=== PATIENT | female | born 1960 | race Caucasian/White ===

== ENCOUNTER 2016-10-02 00:35 | Emergency (ER) | payer MEDICAID ==
--- NOTE | 2016-10-02 01:01 | EDPHY ---
H & P Source: Patient, Police, Old records Exam Limitations: No limitations - Medical/Surgical History Hx Asthma: No Hx Chronic Respiratory Disease: No Hx Diabetes: No Hx Cardiac Disease: No Hx Renal Disease: No Hx Cirrhosis: No Hx Alcoholism: No Hx HIV/AIDS: No Hx Splenectomy or Spleen Trauma: No Other PMH: PMH:ETOH,SZ,DEPRESSION - Social History Smoking Status: Never smoked Time Seen by Provider: 10/02/16 00:38 HPI/ROS: HPI The patient presents with suicidal ideation without plan. She presents brought in by the police on a mental health hold. The patient called a suicide hotline [facility] stating that she was feeling suicidal. The police then checked in on her and she confirms she was feeling suicidal, though cannot state a plan. She says she is very depressed because her mother in November of last year, she has lost her job, and over the last 4-7 days she has relapsed after 10 months of sobriety from alcohol. She has been drinking 1/2 to 1 pt of alcohol a day. She tells me "what's the use?' in living and that she "can't take any more pain ". REVIEW OF SYSTEMS Constitutional: No fever, no chills. Eyes: No discharge. ENT: No sore throat. Cardiovascular: No chest pain, no palpitations. Respiratory: No cough, no shortness of breath. Gastrointestinal: No abdominal pain, no vomiting. Genitourinary: No hematuria. Musculoskeletal: No back pain. Skin: No rashes. Neurological: No headache. PMHx: Depression Soc Hx: Chronic alcohol abuse, lives alone PHYSICAL General Appearance: Alert, tearful at times Eyes: Pupils equal and round no pallor or injection ENT, Mouth: Mucous membranes moist Respiratory: There are no retractions, lungs are clear to auscultation Cardiovascular: Regular rate and rhythm Gastrointestinal: Abdomen is soft and non-tender, no masses, bowel sounds normal Neurological: A&O, moves all extremities Skin: Warm and dry, no rashes Musculoskeletal: Neck is supple non tender Extremities: symmetrical, full range of motion Psychiatric: Patient is oriented X 3, there is no agitation ([place]) Constitutional: Initial Vital Signs Temperature (C) 37.1 C 10/02/16 00:35 Heart Rate 84 10/02/16 00:35 Respiratory Rate 16 10/02/16 00:35 Blood Pressure 123/72 H 10/02/16 00:35 O2 Sat (%) 96 10/02/16 00:35 O2 Delivery Mode Room Air Allergies/Adverse Reactions: clonazepam Allergy (Intermediate, Verified 11/09/15 09:28) Other-Enter Comments Home Medications: Medication Instructions Recorded Abilify Unk Dose 01/12/16 Adderall Unk Dose 01/12/16 Lamotrigine Unk Dose 01/12/16 Pantoprazole Sodium [Protonix] 40 mg PO DAILY #30 tab 01/12/16 Prozac Unk Dose 01/12/16 Trazadone Unk Dose 01/12/16 Medical Decision Making ED Course/Re-evaluation: 5:20 a.m.- The patient has remained stable throughout her time in the emergency room. Labs were checked and did reveal a markedly elevated alcohol level. Urine toxicology was positive for benzodiazepines and marijuana. She is metabolizing her alcohol currently and awaiting psychiatric evaluation. I anticipate she will be signed out to the oncoming provider Dr. Morgan at 7:00 a.m., pending her sobriety and psychiatric evaluation. ([place] Edward) 1500: Patient was signed out to me at change of shift by Dr. Morgan. Patient is awaiting to metabolize alcohol for further evaluation. Patient was evaluated. Her hold was lifted. She was given warnings prior to leaving. (Dinah Streeter) Differential Diagnosis: This is a 55-year-old female who presents on an M1 hold for suicidal ideation. She states she has recently relapsed and started drinking alcohol again because she is saddened by the loss of her mother and loss of employment. She does not have an exact plan for suicide. She has had similar presentations to this. She is currently intoxicated. Differential diagnosis includes alcohol intoxication, depression with suicidal ideation, polysubstance abuse. ([place] Edward) - Data Points Laboratory Results: Laboratory Results 10/02/16 00:49 10/02/16 00:49 Medications Given: Discontinued Medications Lorazepam (Ativan) 1 mg PO EDNOW ONE Stop: 10/02/16 12:55 Last Admin: 10/02/16 13:12 Dose: 1 mg Ondansetron HCl (Zofran Odt) 4 mg PO EDNOW ONE Stop: 10/02/16 10:50 Last Admin: 10/02/16 10:51 Dose: 4 mg Departure - Departure Disposition: Home, Routine, Self-Care Clinical Impression: Suicidal ideation, Alcoholism Condition: Good Instructions: Abuse of Alcohol (ED) Referrals: [facility],. [Clinic] - As per Instructions Nick Rollins MD [Medical Doctor] - As per Instructions
[2016-10-02 01:07] LABS: % IMMATURE GRANULYOCYTES 0.2 % (0.0-1.1); ABSOLUTE IMMATURE GRANULOCYTES 0.01 10^3/uL (0.00-0.10); ADD DIFF? NO; ADD MORPH? NO; ADD SCAN? NO; ATYPICAL LYMPHOCYTE FLAG 0 (0-99); FRAGMENT RBC FLAG 0 (0-99); HEMATOCRIT 41.2 % (38.0-47.0); HEMOGLOBIN 14.4 g/dL (12.6-16.3); LEFT SHIFT FLG 0 (0-99); LIPEMIA HEMOLYSIS FLAG 90 (0-99); MEAN CELL HEMOGLOBIN 35.2 pg (27.9-34.1); MEAN CELL VOLUME 100.7 fL (81.5-99.8); MEAN PLATELET VOLUME 8.8 fL (8.7-11.7); PLATELET CLUMPS FLAG 20 (0-99); PLATELET COUNT 197 10^3/uL (150-400); RED BLOOD CELL COUNT 4.09 10^6/uL (4.18-5.33); RED CELL DISTRIBUTION WIDTH 13.4 % (11.5-15.2)
[2016-10-02 01:18] LABS: ANION GAP 17 mEq/L (8-16); CALCIUM 9.2 mg/dL (8.5-10.4); CARBON DIOXIDE 19 mEq/l (22-31); CHLORIDE 113 mEq/L (97-110); CREATININE 0.8 mg/dL (0.6-1.0); GLOMERULAR FILTRATION RATE > 60; GLUCOSE 82 mg/dL (70-100); POTASSIUM 3.8 mEq/L (3.5-5.2); SODIUM 149 mEq/L (134-144)
[2016-10-02 01:26] LABS: ETHANOL SERUM 436 mg/dL (0-10)
[2016-10-02] MEDS ORDERED: ONDANSETRON DISINTEGRATING 4 MG TAB ONE (10:31)
[2016-10-02] MEDS ORDERED: ONDANSETRON DISINTEGRATING 4 MG TAB PO ONE (10:49)
[2016-10-02] MEDS ORDERED: LORazepam 1 MG TAB ONE (12:54)
[2016-10-02] MEDS ORDERED: LORazepam 1 MG TAB PO ONE (12:54)
[2016-10-02 16:41] VITALS: RESP 14
[2016-10-02 20:11] VITALS: BP 151/101; PULSE 78; TEMP 98.6; O2SAT 99
== END 2016-10-02 19:59 | disposition home or self-care (01) ==
DX: R45.851 Suicidal ideations (principal); F10.20 Alcohol dependence, uncomplicated
CPT/HCPCS: 80305; G0480

== ENCOUNTER 2017-10-26 13:35 | Emergency (ER) | payer MEDICAID ==
--- NOTE | 2017-10-26 14:45 | EDPHY ---
H & P Stated Complaint: NONTRAUMATIC LOW BACK PAIN/TREMORS/JUST DETOXED AT [facility] - Personal History Current Tetanus Diphtheria and Acellular Pertussis (TDAP): Unsure - Medical/Surgical History Hx Asthma: No Hx Chronic Respiratory Disease: No Hx Diabetes: No Hx Cardiac Disease: No Hx Renal Disease: No Hx Cirrhosis: No Hx Alcoholism: Yes Hx HIV/AIDS: No Hx Splenectomy or Spleen Trauma: No Other PMH: PMH:ETOH,SZ,DEPRESSION - Social History Smoking Status: Never smoked Time Seen by Provider: 10/26/17 14:43 HPI/ROS: CHIEF COMPLAINT: Low back pain x2 days HISTORY OF PRESENT ILLNESS: 57-year-old female complaining of acute on chronic low back pain for the past 3 days. Reproducible exacerbated with movement at the waist. Better sitting still. Feels similar to prior lumbar back pain. No radiculopathy. No trauma. No fall. No saddle anesthesia. No fever or chills. No incontinence no retention. She is also complaining of increasing anxiety related to the of her father recently. No suicidal or homicidal ideation. History of alcoholism, last drink was 5 days ago, denies hallucination, denies seizure. PRIMARY CARE PROVIDER: REVIEW OF SYSTEMS: A ten point review of systems was performed and is negative with the exception of the items mentioned in the HPI PAST MEDICAL & SURGICAL HISTORY: Alcoholism SOCIAL HISTORY: Alcoholism last drink of alcohol 5 days ago PHYSICAL EXAM (Prior to examination, patient consented to physical exam, hands were washed and my usual and customary physical exam procedures followed) 1) GENERAL: Well-developed, well-nourished, alert and oriented. Appears nontoxic. She is tearful, tremulous 2) HEAD: Normocephalic, atraumatic 3) HEENT: Pupils equal, round, reactive to light bilaterally. Sclera anicteric. Nasopharynx, oropharynx, clear, no lesions. 4) NECK: Full range of motion, no meningeal signs. 5) LUNGS: Clear auscultation bilaterally, no wheezes, no rhonchi, no retractions. 6) HEART: Regular rate and rhythm, no murmur, no heave, no gallop. 7) ABDOMEN: No guarding, no rebound, no focal tenderness, negative McBurney's, negative Martinez's, negative Rovsing's, negative peritoneal sign, 8) MUSCULOSKELETAL: Moving all extremities, no focal areas of tenderness, no obvious trauma. No peripheral edema or discoloration. 9) BACK: tender to palpation paraspinous muscle. No CVA tenderness, no midline vertebral tenderness, no fluctuance, no step-off, no obvious trauma, no visual or palpable abnormality. Patella, Achilles reflexes intact to bilateral strength 5/5 10) SKIN: No rash, no petechiae. 11) NEURO: Awake, alert, and oriented to person, place and time. Answers questions appropriately. There were no obvious focal neurologic abnormalities. No cerebellar dysfunction. Normal steady gait. Upper and lower extremities bilaterally with strength 5 / 5, reflexes 2+.. She is tremulous. DIFFERENTIAL DIAGNOSIS: In no particular order, including but not limited to, fracture, sprain/strain, cauda equina, spinal infectious etiology. MEDICAL DECISION MAKING Lower index of suspicion for cauda equina, epidural abscess, epidural hematoma, lumbar myositis, diskitis, as the patient is neurologically intact in the lower extremities, has patella and Achilles reflexes intact and equal bilaterally, has no neurologic deficits, no incontinence, no retention, no midline pain, no fluctuance, afebrile, no flulike symptoms. Pain may be secondary to muscular strain, may be secondary to discogenic etiology. At this point I do not identify definitive indication for emergent MRI, however patient may necessitate this on an outpatient basis. Patient given acute back pain precautions. Regarding the patient's increasing anxiety, she denies suicidal or homicidal ideation, notes recent of her father. I have agreed to give her 3 Ativan tablet prescription. Patient verbalizes understanding of discharge instructions. I believe her to be a competent decision-maker. All questions and concerns have been addressed by me. Ample opportunity for questions have been provided . The patient understands that this diagnosis is provisional and can never be 100% accurate. Usual and customary warnings were given concerning the clinical impression and all the patient's questions were answered. The patient was instructed to return to the emergency department should her symptoms worsen or return, or develop any new symptoms, otherwise to followup as directed in discharge instructions. (Shin,D Sherlyn) Constitutional: Initial Vital Signs Temperature (C) 36.5 C 10/26/17 13:39 Heart Rate 62 10/26/17 13:39 Respiratory Rate 18 10/26/17 13:39 Blood Pressure 126/89 H 10/26/17 13:39 O2 Sat (%) 99 10/26/17 13:39 O2 Delivery Mode Room Air Allergies/Adverse Reactions: clonazepam Allergy (Intermediate, Verified 10/26/17 13:38) Other-Enter Comments Home Medications: Medication Instructions Recorded Abilify Unk Dose 01/12/16 Adderall Unk Dose 01/12/16 Lamotrigine Unk Dose 01/12/16 Pantoprazole Sodium [Protonix] 40 mg PO DAILY #30 tab 01/12/16 Prozac Unk Dose 01/12/16 Trazadone Unk Dose 01/12/16 Cyclobenzaprine [Flexeril 10 MG 10 mg PO TID #10 tab 10/26/17 (RX)] LORazepam [Ativan 1 mg (RX)] 1 mg PO Q6 PRN #3 tab 10/26/17 Medical Decision Making Other Provider: The patient was evaluated and managed by the Physician Certified Ophthalmic Technician. My co- signature indicates that I have reviewed this chart and I agree with the findings and plan of care as documented. I am the secondary supervising physician. (Aaliyah Tavarez) - Data Points Medications Given: Discontinued Medications Cyclobenzaprine HCl (Flexeril) 10 mg PO EDNOW ONE Stop: 10/26/17 15:23 Last Admin: 10/26/17 15:28 Dose: 10 mg Departure - Departure Disposition: Home, Routine, Self-Care Clinical Impression: Anxiety Low back pain Qualifiers: Chronicity: acute Back pain laterality: bilateral Sciatica presence: without sciatica Qualified Code(s): M54.5 - Low back pain Condition: Good Instructions: Acute Low Back Pain (ED), Anxiety (ED) Additional Instructions: Seek medical attention if you develop new or worsening pain, if you develop bladder or bowel dysfunction, numbness around your perineum, foot drop, or any other symptoms that concern you. Referrals: [facility],. [Clinic] - 2-3 days, call for appt. Prescriptions: Cyclobenzaprine [Flexeril 10 MG (RX)] 10 mg PO TID #10 tab LORazepam [Ativan 1 mg (RX)] 1 mg PO Q6 PRN #3 tab PRN Reason: Anxiety
[2017-10-26] MEDS ORDERED: CYCLOBENZAPRINE 10 MG TAB PO ONE (15:22)
[2017-10-26 16:33] VITALS: BP 135/85
== END 2017-10-26 16:33 | disposition home or self-care (01) ==
DX: M54.5 Low back pain (principal); F41.9 Anxiety disorder, unspecified

== ENCOUNTER 2017-11-27 10:02 | Inpatient (IN) | payer MEDICAID, OTHER ==
[2017-11-27] MEDS ORDERED: LORazepam 2 MG/ML INJ ONE (10:35)
[2017-11-27] MEDS ORDERED: LORazepam 2 MG/ML INJ IVP ONE ×2 (10:37→11:03)
[2017-11-27] MEDS ORDERED: NS 1,000 ML IV ONE ×2 (11:02→11:39)
--- NOTE | 2017-11-27 11:02 | EDPHY ---
General - History Smoking Status: Never smoked Time Seen by Provider: 11/27/17 10:53 Narrative: CHIEF COMPLAINT: Anxiety, suicidal HISTORY OF PRESENT ILLNESS: Patient presents with complaints of feeling anxious, depressed and suicidal. She says that she is currently unemployed and has been increasingly anxious over the past few days. Over the past 24 hr she has felt depressed and suicidal. She says she does not have a plan but feels as though she would hurt herself. She is tearful. She describes spasms of the, tingling the mouth. No chest pain. No shortness of breath. No trauma or injury. She denies any ingestion of any illicit substances or any of her prescribed medications other than prescription doses. She does admit 1 pt per day of vodka a use last intake last night. REVIEW OF SYSTEMS: Ten systems reviewed and are negative unless otherwise noted in the HPI PCP: None currently SPECIALISTS: None currently PAST MEDICAL HISTORY: Anxiety, depression alcohol use, seizure disorder PAST SURGICAL HISTORY: No recent surgeries SOCIAL HISTORY: Nonsmoker. Daily ingestion of vodka 1 pt. Last intake last night. Denies street drug use. FAMILY HISTORY: Noncontributory EXAMINATION General Appearance: Alert, no distress. Tearful and anxious Head: normocephalic, atraumatic Eyes: Pupils equal and round, no conjunctival pallor or injection ENT, Mouth: Mucous membranes moist Neck: Normal inspection, supple, non-tender Respiratory: Lungs are clear to auscultation Cardiovascular: Regular rate and rhythm. No murmur per Gastrointestinal: Abdomen is soft and nontender Back: non-tender, no bony abnormalities Neurological: GCS 15. A&O, nonfocal, normal gait Skin: Warm and dry, no rash Extremities: Nontender, no pedal edema Psychiatric: Depressed mood and flat affect with suicidal ideation without a plan. Denies ingestion of illicit substances or attempt to harm herself today. DIFFERENTIAL DIAGNOSES: Including but not limited to alcohol intoxication, alcohol withdrawal, depression, suicidal, anxiety MDM: 11:00 a.m. Increasing anxiety and depression with thoughts of self-harm. She says that she feels for her life if he is discharged home although she does not admitted plan. She has had increasing suicidal thoughts today. She denies any ingestion of any illicit substances. She does admit to alcohol use last night. There is no evidence of delirium tremens or acute alcohol withdrawal or any seizure activity. I have placed her on a medical detained or due to the suicidal thoughts. Proceed with medical clearance. 11:40 a.m. Laboratory studies reveal a serum alcohol level of 156 with elevated anion gap of 25. Laboratory studies otherwise within normal limits. She received 1 mg of Ativan and is currently receiving 1 L IV fluid. I have ordered a 2nd L fluid I will discuss with Dr. Tavarez. She does not exhibit any signs or symptoms of delirium tremens or encephalopathy at this time. She is afebrile. 2:00 p.m. Patient has been evaluated twice in the past hour and remains awake alert no acute distress. Her 2nd L IV fluid is only recently completed, and a repeat chemistry is pending. She exhibits no signs of delirium tremens or encephalopathy. 2:20 p.m. Patient's chemistry reveals closed anion gap at this time. Mild hypocalcemia. This after 2 L IV fluid. I re-evaluated her and she is feeling much better at this time. She says she is no longer feeling suicidal but will still be evaluated by mental health professional shortly. She remains on a detainer at this time. 4:00 p.m. Evaluation pending. She is resting comfortably. Carpopedal spasms have completely resolved. She is eating without difficulties. 5:15 p.m. Patient is currently being evaluated. At this time Dr. Rogers will assume care the patient. Please see his note for final disposition. SUPERVISION: Patient was independently examined, but I discussed the case with my secondary supervising physician Dr. Tavarez and Dr. Rogers ([facility]) Medical Decision Makin:00 p.m. the patient has been evaluated and they will plan to admit. They are requesting Ativan for anxiety. 10:00 p.m. Patient accepted to [address] [place] [address] Restrepo. She is feeling much better after Librium (Tyrone Rogers) Discussion: The patient was evaluated and managed by the Physician Soap Drier Tender. I discussed the patient's presentation and course with the midlevel provider with them and agree with the evaluation. My co-signature indicates that I have reviewed this chart and I agree with the findings and plan of care as documented. I am the secondary supervising physician. (Aaliyah Tavarez) - Objective Vital Signs: Initial Vital Signs Temperature (C) 98.2 F 11/27/17 10:18 Heart Rate 103 H 11/27/17 10:18 Respiratory Rate 24 H 11/27/17 10:18 Blood Pressure 157/106 H 11/27/17 10:18 O2 Sat (%) 98 11/27/17 10:18 O2 Delivery Mode Room Air O2 (L/minute) 2 Allergies/Adverse Reactions: No Known Allergies Allergy (Verified 11/27/17 22:04) Home Medications: Medication Instructions Recorded Dextroamphetamine/Amphetamine 20 mg PO DAILY 01/12/16 [Adderall Xr 20 mg Capsule] FLUoxetine [Prozac 20 MG (*)] 80 mg PO DAILY 01/12/16 lamoTRIgine [LamICTAL 100 MG (*)] 150 mg PO DAILY 01/12/16 traZODone [traZODone 150MG (*)] 150 mg PO HS 01/12/16 Laboratory Results: Laboratory Results 11/27/17 10:33 11/27/17 13:50 Medications Given: Chlordiazepoxide HCl (Librium) 25 - 50 mg PO Q4HRS PRN; Protocol PRN Reason: CIWA Protocol Stop: 05/27/18 00:27 Last Admin: 11/28/17 00:58 Dose: 25 mg Folic Acid (Folic Acid) 1 mg PO DAILY JORJE Stop: 05/27/18 08:59 Last Admin: 11/28/17 08:19 Dose: 1 mg Gabapentin (Neurontin) 400 mg PO TID JORJE Stop: 05/27/18 15:59 Last Admin: 11/28/17 16:23 Dose: 400 mg Multivitamins (Tab-A-Mary Ann) 1 each PO DAILY JORJE Stop: 05/27/18 08:59 Last Admin: 11/28/17 08:19 Dose: 1 each Thiamine HCl (Vitamin B-1) 100 mg PO DAILY JORJE Stop: 11/30/17 09:01 Last Admin: 11/28/17 08:19 Dose: 100 mg Venlafaxine HCl (Effexor Xr) 75 mg PO DAILY JORJE Stop: 05/27/18 14:14 Last Admin: 11/28/17 14:35 Dose: 75 mg Discontinued Medications Chlordiazepoxide HCl (Librium) 50 mg PO EDNOW ONE Stop: 11/27/17 20:07 Last Admin: 11/27/17 20:10 Dose: 50 mg Sodium Chloride (Ns) 1,000 mls @ 0 mls/hr IV EDNOW ONE; Wide Open PRN Reason: Protocol Stop: 11/27/17 11:03 Last Admin: 11/27/17 11:25 Dose: 1,000 mls Sodium Chloride (Ns) 1,000 mls @ 0 mls/hr IV EDNOW ONE; Wide Open PRN Reason: Protocol Stop: 11/27/17 11:40 Last Admin: 11/27/17 11:44 Dose: 1,000 mls Lamotrigine (Lamictal) 100 mg PO ONCE ONE Stop: 11/28/17 00:46 Last Admin: 11/28/17 00:58 Dose: 100 mg Lorazepam (Ativan Injection) 1 mg IVP EDNOW ONE Stop: 11/27/17 10:38 Last Admin: 11/27/17 10:40 Dose: 1 mg Lorazepam (Ativan Injection) 1 mg IVP EDNOW ONE Stop: 11/27/17 11:04 Last Admin: 11/27/17 11:17 Dose: 1 mg Lorazepam (Ativan) 1 mg PO EDNOW ONE Stop: 11/27/17 19:12 Last Admin: 11/27/17 19:13 Dose: 1 mg Thiamine HCl (Vitamin B-1) 100 mg PO ONCE ONE Stop: 11/28/17 00:29 Last Admin: 11/28/17 05:30 Dose: Not Given Trazodone HCl (Trazodone) 50 mg PO ONCE ONE Stop: 11/28/17 00:46 Last Admin: 11/28/17 00:58 Dose: 50 mg Departure - Departure Disposition: Other Psych, Not [place] Clinical Impression: Alcoholism, Suicidal ideation Condition: Good
[2017-11-27 11:14] LABS: PLATELET COUNT 347 10^3/uL (150-400)
[2017-11-27] MEDS ORDERED: LORazepam 1 MG TAB PO ONE (19:11)
[2017-11-27] MEDS ORDERED: LORazepam 1 MG TAB ONE (19:12)
[2017-11-27] MEDS ORDERED: chlordiazePOXIDE 25 MG CAP PO ONE (20:06)
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
[2017-11-28] MEDS ORDERED: IBUPROFEN 200 MG TAB PO PRN (00:28)
[2017-11-28] MEDS ORDERED: THIAMINE HCL 100 MG TAB (ONCE) PO ONE (00:28)
[2017-11-28] MEDS ORDERED: PROMETHAZINE HCL 25 MG TAB PO PRN (00:28)
[2017-11-28] MEDS ORDERED: MAGNESIUM HYDROXIDE 30 ML UDCUP PO PRN (00:28)
[2017-11-28] MEDS ORDERED: chlordiazePOXIDE 25 MG CAP PO PRN (00:28)
[2017-11-28] MEDS ORDERED: PROMETHAZINE HCL 25 MG SUPPR PR PRN (00:28)
[2017-11-28] MEDS ORDERED: MAG HYDROX/AL HYDROX/SIMETH 30 ML UDCUP PO PRN (00:28)
[2017-11-28] MEDS ORDERED: lamoTRIgine 100 MG TAB PO ONE (00:45)
[2017-11-28] MEDS ORDERED: traZODone 50 MG TAB PO ONE (00:45)
[2017-11-28] MEDS: THIAMINE HCL 100 MG TAB (DAILY X 3) PO SCH (08:19)
[2017-11-28] MEDS: FOLIC ACID 1 MG TAB PO SCH (08:19)
[2017-11-28] MEDS: MULTIVITAMINS 1 EACH TAB PO SCH (08:19)
--- NOTE | 2017-11-28 12:41 | ASMTBHMTP ---
Master Treatment Plan Master Treatment Plan Answers: Depressed Mood with for: Suicidal Ideation Date: 11/28/2017 Diagnosis on Admission: Major Depressive Disorder Expected length of stay: 3-5 days Reason for admission: Notes: Per TLC Evaluation - Pt. is a 57 year old female who presented to [facility] by EMS complaining of worsening depression and suicidal ideation. Pt. denied a plan but reported having thoughts of wanting to hurt herself. Pt. reports that when she is sober she never has suicidal thoughts. Pt. does report that she feels depressed and stated, "I'm on the verge of tears when I talk. Everything feels like too much for me and I don't feel like it would overwhelm others. I;m sleeping too much but it's where I feel safe." Pt . reported she is currently in the AA program and has been sober for 22 days but relapse last night. Pt. also reported that she does not feel like any of her psychiatric medications are working. Patient's stated presenting problems: Notes: Pt. reported drinking the night prior to admission. Pt. stated she is having "trouble with my sobrity". Pt. stated she had a panic attack on Monday and brought herself into the hospital Patient's goals for treatment: Notes: "Think my meds are all messed up". Pt. 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 Identify supports outside of hospital: Notes: Mai (sponsor) Nancy, Eva, Terri, Jaymie, Pk, Denis and Bernabe (x2) Discharge criteria: Notes: Suicidal ideation will resolve and patient will have a plan to safely manage recurrent suicidal ideation. Initial disposition plan/considerations: Notes: Return to apartment and to her cat. Continue sobriety Master Treatment Plan Required Signatures Psychiatrist signature: Answers: Psychiatrist: RN on-shift signature: Answers: RN: Patient signature: Answers: Patient: Date Signed: 11/28/2017 12:40 PM Electronically Signed By:Arline Catherine
[2017-11-28] MEDS: VENLAFAXINE XR 75 MG CAP PO SCH (14:35)
--- NOTE | 2017-11-28 15:03 | ASMTCMCOM ---
CM Note CM Note Notes: Pt. and CC complete pt's MTP, signed and placed in file. Pt. reports "not doing good". Pt. shared about relapsing recently. Pt. shared she was working on the fourth step with her sponsor, and became triggered. Pt. stated "Don't know how to stay safe during the 4th step". Pt. denied SI, HI, AVH and paranoia. Pt. shared she is attending AA meetings and requested a Big Book while on the unit. Pt. stated her cat is at home and will need someone to care for it. CC and Pt. worked on plans for caring for the cat. 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 Pt. stated her plan was to give herself two months to work on her recovery and then start looking for a new job, but then pt. relapsed. Pt. stated she was hospitalized last in 1991 at [facility] for 2 weeks. Pt. stated she was diagnosed with depression, PTSD, anxiety, and has a history of trauma. Pt. rated her current depression a 8/10, which is higher than normal for her. Pt. rated her current anxiety 9-10/10. Pt. stated she doesn't want to kill herself, but doesn't necessarily want to continue existing. Date Signed: 11/28/2017 03:02 PM Electronically Signed By:Arline Catherine
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
[2017-11-28] MEDS: GABAPENTIN 400 MG CAP PO SCH ×2 (16:23→21:39)
--- NOTE | 2017-11-28 17:52 | BCON ---
[f rep st] BEHAVIORAL HEALTH CONSULTATION DATE OF CONSULTATION: 11/28/2017 REFERRING PHYSICIAN: Jassi Restrepo MD REASON FOR REFERRAL: Medical clearance for inpatient behavioral health stay. HISTORY OF PRESENT ILLNESS: This patient came to the emergency department complaining of feeling anxious, depressed and suicidal. She was evaluated by the mental health team and admitted for further psychiatric care. Incidentally , she was found to be intoxicated on alcohol. She is currently without acute medical complaints though she is tearful and anxious. PAST MEDICAL HISTORY: 1. Mental health issues with diagnoses in the chart of major depressive disorder. 2. Alcoholism. 3. Multiple falls with facial fractures and subdural hematoma. 4. Pneumonia. PAST SURGICAL HISTORY: She has not had any surgeries. MEDICATIONS: Prior to admission: 1. Adderall 20 mg p.o. daily. 2. Trazodone 150 mg p.o. at bedtime. 3. Lamotrigine 150 mg p.o. daily. 4. Fluoxetine 80 mg p.o. daily. Please note, I am unclear if the lamotrigine is for mental health or if she has a history of seizures related to the history of subdural hematoma. SOCIAL HISTORY: She lives alone. 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 She drinks large amounts of alcohol. She is a nonsmoker. She has no children. FAMILY HISTORY: Noncontributory. REVIEW OF SYSTEMS: She denies any symptoms of alcohol withdrawal and reports that she has never had withdrawal symptoms in the past. She specifically denies shakes or sweats. She has no cough or dyspnea. No fevers or chills. No nausea, vomiting, constipation, or diarrhea. No dysuria and no urinary frequency. Chart review reveals weight gain of almost 5 kg: on 06/23/2015, her weight was recorded at 54.4 kg, and her current weight is 61.2 kg. PHYSICAL EXAM: VITAL SIGNS: Blood pressure is 118/86, heart rate is 108, respiratory rate is 16, oxygen saturation is 98% on room air. Temperature is 36.8 degrees centigrade. GENERAL: This is a well-nourished, well-developed, overweight appearing woman sitting up in her bed, dressed in a green hospital smock and scrub pants. Cooperative and in moderate distress with tearfulness. HEENT: Extraocular movements are intact. Pupils are equal, round, reactive to light. Mucous membranes are moist. Dentition is in good condition. NECK: Supple. HEART: There is regular rate and rhythm with no murmurs, rubs, or gallops. LUNGS: Clear to auscultation bilaterally. ABDOMEN: Benign. EXTREMITIES: There is no cyanosis, clubbing, or edema. NEUROLOGIC: She is alert and oriented x3. Cranial nerves 2-12 are grossly intact. There is no focal weakness. Sensation is intact to light touch. LABORATORY STUDIES: Drawn yesterday in the emergency department. CBC revealed an elevated white blood cell count at 9.73. There were predominantly neutrophils and there was no left shift. Otherwise, there are minor abnormalities of no clinical significance. Serum chemistry initially showed an anion gap of 25. Subsequently, she was hydrated in the emergency department and anion gap resolved. She had a low carbon dioxide at 19 after hydration, calcium was 9.3 initially and 7.7 after hydration. Liver function tests revealed elevated AST and ALT of 166 and 107. Her albumin was low when checked after hydration at 3.3. TSH was normal at 1.79. Hemoglobin A1c was normal at 4.7. Toxicology screen in the serum was positive for 156 mg/dL of ethyl alcohol and in the urine was non-negative for amphetamines and marijuana. ASSESSMENT/RECOMMENDATIONS: 1. Mental health issues pending further evaluation and management per Psychiatry and the mental health team. 2. Hepatitis, likely due to ethanol ingestion. Liver functions can be re checked routinely by her primary care physician after her discharge. 3. Alcohol use disorder. She might benefit from specific substance abuse counseling. 4. Weight gain. Consider caution regarding medications that could further weight gain though at present based on her lab studies, she has no significant metabolic abnormalities. 5. Question of hypocalcemia. Even after corrected for low albumin her calcium is on the low side. Emergency department notes describe carpopedal spasm, it is conceivable that she was hyperventilating, which can change blood acid base balance, interfere with calcium metabolism in the cells and cause a carpopedal spasm. She should be observed for normal oral intake and for hyperventilation. If she has any further symptoms such as carpopedal spasm, further evaluation regarding calcium metabolism would be in order. I see no medical contraindications to this patient's continued stay in the inpatient behavioral health unit or to any psychiatric medications or procedures. Thank you very much for including me in the care of this patient and please do not hesitate to contact me or the hospitalist service should there be need for further medical evaluation. /[id number]/MODL MTDD
[2017-11-28] MEDS: lamoTRIgine 100 MG TAB PO SCH (21:39)
[2017-11-29] MEDS: THIAMINE HCL 100 MG TAB (DAILY X 3) PO SCH (08:50)
[2017-11-29] MEDS: MULTIVITAMINS 1 EACH TAB PO SCH (08:50)
[2017-11-29] MEDS: FOLIC ACID 1 MG TAB PO SCH (08:50)
[2017-11-29] MEDS: VENLAFAXINE XR 75 MG CAP PO SCH (08:51)
[2017-11-29] MEDS: GABAPENTIN 400 MG CAP PO SCH ×3 (08:51→21:02)
[2017-11-29] MEDS: DISULFIRAM 250 MG TAB PO SCH (09:35)
--- NOTE | 2017-11-29 09:36 | PDMN ---
Medical Necessity Medical necessity: [facility] [place] B008IP Major Depressive D/O, Adult IP Care, B013IP PTSD Adult IP Care and B903IP Substance-Related Disorders, Inpatient Behavioral Health Level of Care, Adult: 57 y/o w/ Major depressive d/o, severe, with anxious distress, PTSD, ETOH use d/o, severe in a controlled environment. Danger to self, M1 hold.
--- NOTE | 2017-11-29 11:06 | SOAPPROG ---
SOAP Progress Note Assessment/Plan: Assessment: Depression with anxious distress, PTSD, and alcohol use disorder, severe. Slight improvement noted. (see subjective/objective note). Patient is not safe to discharge at this time as patient continues to exhibit signs of depression, and express depression symptoms. Patient requires continued inpatient care because of current depression and recent SI, and requires inpatient level of care to stabilize in order to no longer be a danger to herself. Patient could benefit from continued inpatient hospitalization for crisis stabilization, safety, and medication evaluation. Plan: (1) Psychotropic medications: After reviewing options, risks, and benefits patient agrees to continue current medications. D/C Librium and CIWA protocol. No medication changes at this time as more time is needed to determine ongoing tolerability and efficacy. Plan is to continue to observe patient for response and side effects from medications, and ongoing monitoring and evaluation. (2) Review with patient informed consent and recommendations for psychotropic medication treatment listed below (3) Labs: no additional labs at this time (4) Therapy: continue milieu and group therapy (5) Further investigation including gathering information from patients relatives and review of past case records to inform treatment plan. (6) Safety/Wellness plan and follow-up outpatient appointments to be established prior to discharge. Next steps are for patient to meet with rn complex care to plan a safe discharge plan and establish outpatient services for ongoing treatment. (7) Confer with inpatient treatment team regarding treatment plan. (8) Legal status: M1; patient has agreed to voluntary when M1 expires (9) Consider discharge on Monday if patient is in stable condition, safe, and has a safe discharge plan. (10) Substance abuse interventions: recommend and refer patient to substance abuse treatment; reinforce substance abuse education and brief intervention above PSYCHOTROPIC MEDICATION TREATMENT INFORMED CONSENT and RECOMMENDATIONS: Review nature of condition, diagnosis, and prognosis. Review nature and purpose of psychotropic medication treatment. Review type of psychotropic medications being ordered. Review risk and benefits of psychotropic medication treatment. Review probable length of time patient will need to take medications. Review risk and benefits of not undergoing psychotropic medication treatment. Review alternative treatments to psychotropic medications. Review psychotropic medications contraindications, drug-drug interactions, side effects, and importance of reporting any side effects to a psychiatric provider or nurse during inpatient hospitalization, and upon discharge to patients psychiatric outpatient provider, primary care provider, or other health child care education coordinator. Review importance of asking a nurse, psychiatric provider, or primary care provider any questions or problems concerning the psychotropic medications. Verify patient understands the information that has been provided, and understands, accepts, and agrees to psychotropic medications. Review patients safety plan and importance of patient to report to staff while hospitalized if patient is ever a danger to self/others, or unable to care for self, and upon discharge, the importance for patient to contact [facility] or [facility], or go to the nearest emergency room, if patient is ever a danger to self/others, or unable to care for self. Recommend that upon discharge patient establish medication management treatment with a psychiatric provider, establishes routine therapy appointments, and follow-up with primary care provider. Verify patient understands and agrees to these recommendations. 11/29/17 11:06 Subjective: Following up with patient for evaluation of depression, anxiety, and safety. Patient reports, "Feeling calmer today. I have friends that went to my apartment to clean out all the booze that is left over there so I have a nice clean place to return to." Patient expresses the following psychiatric symptoms "a little anxious due to a few unknowns, being in an unfamiliar environment." Patient reports taking medications as prescribed, and describes response to medications as good. Patient does not report undesirable side effects from the medications. Patient reports appetite as improved, and reports eating all meals. Patient describes getting 9 hours of sleep. Patient expresses no symptoms of alcohol withdrawal. Patient has exhibited no signs of alcohol withdrawal. Patient denies SI. Reports last SI on Monday and Monday and states, "They were pretty intense then." Patient reports, "Still feeling pretty fragile, and not safe to discharge yet, would like to stay here to continue to be monitored. Would like to start on Antabuse before I leave here. " Objective: Vital Signs Temp Pulse Resp BP Pulse Ox 36.8 C 76 16 125/81 H 96 11/29/17 08:00 11/29/17 08:00 11/29/17 08:00 11/29/17 08:00 11/29/17 08:00 NURSING REPORT: Consulted with nursing for update on patients progress in treatment. Nurses report patient is engaged in treatment, is attending groups, slept 8 hours, expresses the following psychiatric symptoms: depression and anxiety, exhibits the following psychiatric symptoms: depressed, flat, anxious, tearful; is eating all meals, is taking medications as prescribed with no report of side effects, with no s/s of EPS/akathisia, and denies SI/HI, denies A /V hallucinations, denies delusions. SUBSTANCE ABUSE BRIEF INTERVENTION: Brief intervention regarding the risks of alcohol and cannabis abuse is provided to patient with goal to reduce the risk of harm that could result from the continued use of alcohol and cannabis, with the general aim to investigate the problem, raise awareness of problem, develop a solution with the patient, recommend a specific change or activity, and motivate the patient toward change. Assess substance abuse behavior and give supportive advice about harm reduction, recommend a reduction in hazardous/at- risk consumption patterns, and facilitate referrals for additional specialized treatment with healthcare customer service. Intermediate goal is for the patient to quit use of alcohol and decrease frequency of cannabis use and attend an AA meeting. Intervention focus on intermediate goals to allow for more immediate success in the treatment process to keep the patient motivated. Review following with patient: Cannabis use risks: Short-term use: impaired short-term memory, impaired motor coordination, altered judgement, in high doses paranoia and psychosis. Long-term use addiction, diminished life satisfaction and achievement, symptoms of chronic bronchitis, and increased risk of chronic psychosis disorders if predisposition to such disorders. In withdrawal anger, aggression irritability, anxiety and nervousness, decreased appetite or weight loss, restlessness, and sleep difficulties with strange dreams. Alcohol/Binge Drinking risks: short-term: injuries, violence, alcohol poisoning, risky sexual behaviors. Long-term: high blood pressure, stroke, liver disease, digestive problems, cancer, learning and memory problems, depression and anxiety, social problems, and alcohol dependence. TREATMENT TEAM MEETING: patient met with this KENO CLERK and treatment team including charge nurse, psychiatrist, ed case manager, and therapist to discuss patients treatment plan. Patient became severely anxious during treatment team meeting and stated she felt overwhelmed with making any decisions, and stated she felt safe here; however, stated she does not feel safe to discharge at this time. MSE: The patient presents casually dressed and with good hygiene, and looks stated age. Patient is sitting, posture is upright, and position is relaxed. Patient appears awake, alert, and responds appropriately and reasonably during interview. Patient is engaged, relates well to interviewer, and emotional facial expression is appropriate to situation and changes appropriately with topic. Patient is cooperative, makes comfortable eye contact, and movements are voluntary, deliberate, coordinated, and smooth and even with no inappropriate movements. Patient makes laryngeal sounds effortlessly and shares conversation appropriately; pace of conversation is appropriate, and stream of talking is fluent; articulation is clear and understandable; word choice is effortless and appropriate for education level; completes sentences, occasionally pausing to think; rate and volume are appropriate for interview and setting. Patient reports mood as anxious. Patients affect is stable with full variable range, congruent with mood, and appropriate to speech and circumstances. Patient has linear and logical thinking, with no loose associations, tangential thought, thought blocking, concrete thinking, or any other signs of formal thought disorder. Patient denies suicidal and homicidal ideation, and denies hallucinations and delusions. Patient appears to be a reliable historian with sound judgement and good insight into current condition. Patient has no apparent dysfunction in recent or remote memory noted , and no evidence of gross cognitive dysfunction noted at any point during the interview. - Time Spent With Patient Time Spent With Patient: 30 minutes, met with patient individually and with treatment team. - Pending Discharge Pending Discharge Within 24 Hours: No Pending Discharge Within 48 Hours: Yes Pending Discharge Date: 12/01/17 Pending Discharge Time: 11:00 ICD10 Worksheet Patient Problems: Problems Problem Status Onset Alcohol use disorder, severe, in controlled environment Acute Alcoholism Acute Major depressive disorder, recurrent episode, severe with anxious distress Acute Post traumatic stress disorder Acute Suicidal ideation Acute Alcohol abuse Acute Alcohol intoxication Acute Fall down stairs Acute Fracture of orbital floor Acute Intraparenchymal hematoma of brain due to trauma Acute Nasal bone fracture Acute Severe major depression Acute Sore throat Acute Subdural hemorrhage following injury Acute
--- NOTE | 2017-11-29 11:29 | ASMTBHDC ---
Notes Note: Notes: CC called [facility] to set up f/u appointments. Ct. is getting a new therapist and a new prescriber since her previous providers are leaving the agency. CC was able to schedule an appointment with therapist Alyce Chin on 12/06/17 at 11:00. Left for Alyce recommending that ct. get EOP services and work with a assistant child care teacher in addition to her current service. [facility] will call back with a prescriber appointment. Date Signed: 11/29/2017 11:28 AM Electronically Signed By:Kayleigh Oh
--- NOTE | 2017-11-29 11:57 | ASMTCMCOM ---
CM Note CM Note Notes: CC met with ct. for a check in. Ct. reported that she feels overwhelmed and anxious. She reported that she is anxious thinking about having to go back to her apartment and be there by herself. She said that she now realizes how bad her situation was prior to her admission. She discussed staying with friends for a few nights following her discharge and CC encouraged her to call her friends and try to figure out who she can stay with. Ct. said that she will make the calls. Date Signed: 11/29/2017 11:56 AM Electronically Signed By:Kayleigh Oh
[2017-11-29] MEDS: lamoTRIgine 100 MG TAB PO SCH (21:02)
[2017-11-30] MEDS: DISULFIRAM 250 MG TAB PO SCH (09:35)
[2017-11-30] MEDS: MULTIVITAMINS 1 EACH TAB PO SCH (09:35)
[2017-11-30] MEDS: THIAMINE HCL 100 MG TAB (DAILY X 3) PO SCH (09:35)
[2017-11-30] MEDS: VENLAFAXINE XR 75 MG CAP PO SCH (09:35)
[2017-11-30] MEDS: FOLIC ACID 1 MG TAB PO SCH (09:35)
[2017-11-30] MEDS: GABAPENTIN 400 MG CAP PO SCH ×3 (09:35→20:58)
--- NOTE | 2017-11-30 12:12 | ASMTBHDC ---
Notes Note: Notes: Therapy- 12/06/17 at 11:00 with [facility] [address], [facility] Med Provider Appt: MondayDecember 06 (12/06/17) at 1pm with Sin Yadav ([address]); Telehealth. Date Signed: 11/30/2017 12:10 PM Electronically Signed By:Arline Catherine
--- NOTE | 2017-11-30 13:26 | ASMTBHDC ---
Notes Note: Notes: Pt. reports "I'm doing good". Pt. stated she "slept really good". Pt. reports eating well, and "food is really good here". Pt. reports no issues with her current medications. Pt. shared about discharging Monday or Monday. Pt. requested to stay until Monday, as she wants another day to be "away from stress" and be "able to breath". Pt. stated she is taking a break from her [facility] right now, but will return to it later wiht her sponsor. Pt. stated she was "very anxious about going home" yesterday, but after speaking with some staff she feels better. Pt. stated she is "wanting to trust myself". Pt. shared she becomes upset easily, especially when she loses something. Pt. shared she has feelings of "rage even when sober". Pt. reports being "really excited about my meds". Pt. shared some friends are checking on her cat and cleaning her apartment for her. Pt. stated she is "afrind of feeling better", adding she is currently working on this issue. Pt. denied SI, HI, AVH and paranoia. Pt. presents as alert, calmer, not tearful, with a mostly pleasant demeanor, good eye contact and some insight into her recovery and mental health. Staff report pt. sleeping 8.5 hours. Date Signed: 11/30/2017 01:23 PM Electronically Signed By:Arline Catherine
--- NOTE | 2017-11-30 15:07 | SOAPPROG ---
SOAP Progress Note Assessment/Plan: Assessment: Depression with anxious distress, PTSD, and alcohol use disorder, severe. Slight improvement noted. (see subjective/objective note). Patient is not safe to discharge at this time as patient continues to exhibit signs of depression and anxiety, and express depression and anxiety symptoms. Patient requires continued inpatient care because of current depression, anxiety, and recent SI, and requires inpatient level of care to stabilize in order to no longer be a danger to herself. Patient could benefit from continued inpatient hospitalization for crisis stabilization, observation of safety, and medication evaluation. Plan: (1) Psychotropic medications: After reviewing options, risks, and benefits patient agrees to continue current medications, and hold Antabuse due to elevated AST/ALT with repeat liver function test tomorrow at which time will revisit with patient, and to continue Acamprosate for alcohol use disorder. Increase Gabapentin to 800 mg TID for anxiety. No other medication changes at this time as more time is needed to determine ongoing tolerability and efficacy. Plan is to continue to observe patient for response and side effects from medications, and ongoing monitoring and evaluation. (2) Review with patient informed consent and recommendations for psychotropic medication treatment listed below (3) Labs: repeat AST/ALT (4) Therapy: continue milieu and group therapy (5) Further investigation including gathering information from patients relatives and review of past case records to inform treatment plan. (6) Safety/Wellness plan and follow-up outpatient appointments to be established prior to discharge. Next steps are for patient to meet with care worker to plan a safe discharge plan and establish outpatient services for ongoing treatment. (7) Confer with inpatient treatment team regarding treatment plan. (8) Legal status: M1; patient has agreed to voluntary when M1 expires (9) Consider discharge on Monday if patient is in stable condition, safe, and has a safe discharge plan. (10) Substance abuse interventions: recommend and refer patient to substance abuse treatment; reinforce substance abuse education and brief intervention above PSYCHOTROPIC MEDICATION TREATMENT INFORMED CONSENT and RECOMMENDATIONS: Review nature of condition, diagnosis, and prognosis. Review nature and purpose of psychotropic medication treatment. Review type of psychotropic medications being ordered. Review risk and benefits of psychotropic medication treatment. Review probable length of time patient will need to take medications. Review risk and benefits of not undergoing psychotropic medication treatment. Review alternative treatments to psychotropic medications. Review psychotropic medications contraindications, drug-drug interactions, side effects, and importance of reporting any side effects to a psychiatric provider or nurse during inpatient hospitalization, and upon discharge to patients psychiatric outpatient provider, primary care provider, or other health senior care provider. Review importance of asking a nurse, psychiatric provider, or primary care provider any questions or problems concerning the psychotropic medications. Verify patient understands the information that has been provided, and understands, accepts, and agrees to psychotropic medications. Review patients safety plan and importance of patient to report to staff while hospitalized if patient is ever a danger to self/others, or unable to care for self, and upon discharge, the importance for patient to contact [facility] or [facility], or go to the nearest emergency room, if patient is ever a danger to self/others, or unable to care for self. Recommend that upon discharge patient establish medication management treatment with a psychiatric provider, establishes routine therapy appointments, and follow-up with primary care provider. Verify patient understands and agrees to these recommendations. 11/30/17 15:05 Subjective: Following up with patient for evaluation of depression, anxiety, and safety. Patient reports, "Feeling more stable and clear headed, still feeling really anxious about discharging." Patient reports taking medications as prescribed, and describes response to medications as okay, and expresses still feeling anxious. Patient does not report undesirable side effects from the medications. Patient agrees to continue current medications, and requests increase in Gabapentin to target continued anxiety. Patient reports appetite as improved, and reports eating all meals. Patient describes getting 9 hours of sleep. Patient expresses no symptoms of alcohol withdrawal. Patient has exhibited no signs of alcohol withdrawal. Patient denies SI, however, does not feel safe to be at home states she still feels fragile, and requests to stay another day to see if medication changes will improve her anxiety. Patient agrees to hold Antabuse until repeat liver function tests tomorrow due to concern of increased risks of hepatotoxicity due to current elevated AST/ALT. Patient agrees to start Acamprosate for alcohol use disorder, and agrees to continue voluntary hospitalization for continued stabilization and medication evaluation. Objective: Vital Signs Temp Pulse Resp BP Pulse Ox 36.9 C 79 16 122/82 H 99 11/30/17 08:00 11/30/17 08:00 11/30/17 08:00 11/30/17 08:00 11/30/17 08:00 NURSING REPORT: Consulted with nursing for update on patients progress in treatment. Nurses report patient is engaged in treatment, is attending groups, slept 8.5 hours, expresses the following psychiatric symptoms: depression and anxiety, exhibits the following psychiatric symptoms: depressed, flat, anxious; is eating all meals, is taking medications as prescribed with no report of side effects, with no s/s of EPS/akathisia, and denies SI/HI, denies A/V hallucinations, denies delusions. SUBSTANCE ABUSE BRIEF INTERVENTION: Brief intervention regarding the risks of alcohol and cannabis abuse is provided to patient with goal to reduce the risk of harm that could result from the continued use of alcohol and cannabis, with the general aim to investigate the problem, raise awareness of problem, develop a solution with the patient, recommend a specific change or activity, and motivate the patient toward change. Assess substance abuse behavior and give supportive advice about harm reduction, recommend a reduction in hazardous/at- risk consumption patterns, and facilitate referrals for additional specialized treatment with health care assistant. Intermediate goal is for the patient to quit use of alcohol and decrease frequency of cannabis use and attend an AA meeting. Intervention focus on intermediate goals to allow for more immediate success in the treatment process to keep the patient motivated. Review following with patient: Cannabis use risks: Short-term use: impaired short-term memory, impaired motor coordination, altered judgement, in high doses paranoia and psychosis. Long-term use addiction, diminished life satisfaction and achievement, symptoms of chronic bronchitis, and increased risk of chronic psychosis disorders if predisposition to such disorders. In withdrawal anger, aggression irritability, anxiety and nervousness, decreased appetite or weight loss, restlessness, and sleep difficulties with strange dreams. Alcohol/Binge Drinking risks: short-term: injuries, violence, alcohol poisoning, risky sexual behaviors. Long-term: high blood pressure, stroke, liver disease, digestive problems, cancer, learning and memory problems, depression and anxiety, social problems, and alcohol dependence. MSE: The patient presents casually dressed and with good hygiene, and looks stated age. Patient is sitting, posture is upright, and position is relaxed. Patient appears awake, alert, and responds appropriately and reasonably during interview. Patient is engaged, relates well to interviewer, and emotional facial expression is appropriate to situation and changes appropriately with topic. Intermittent tearfulness. Patient is cooperative, makes comfortable eye contact, and movements are voluntary, deliberate, coordinated, and smooth and even with no inappropriate movements. Patient makes laryngeal sounds effortlessly and shares conversation appropriately; pace of conversation is appropriate, and stream of talking is fluent; articulation is clear and understandable; word choice is effortless and appropriate for education level; completes sentences, occasionally pausing to think; rate and volume are appropriate for interview and setting. Patient reports mood as anxious. Patients affect is stable with full variable range, congruent with mood, and appropriate to speech and circumstances. Patient has linear and logical thinking, with no loose associations, tangential thought, thought blocking, concrete thinking, or any other signs of formal thought disorder. Patient denies suicidal and homicidal ideation, and denies hallucinations and delusions. Patient appears to be a reliable historian with sound judgement and good insight into current condition. Patient has no apparent dysfunction in recent or remote memory noted, and no evidence of gross cognitive dysfunction noted at any point during the interview. - Time Spent With Patient Time Spent With Patient: 25 minutes, met with patient individually. - Pending Discharge Pending Discharge Within 24 Hours: No Pending Discharge Within 48 Hours: Yes Pending Discharge Date: 12/02/17 Pending Discharge Time: 11:00 ICD10 Worksheet Patient Problems: Problems Problem Status Onset Alcohol use disorder, severe, in controlled environment Acute Alcoholism Acute Major depressive disorder, recurrent episode, severe with anxious distress Acute Post traumatic stress disorder Acute Suicidal ideation Acute Alcohol abuse Acute Alcohol intoxication Acute Fall down stairs Acute Fracture of orbital floor Acute Intraparenchymal hematoma of brain due to trauma Acute Nasal bone fracture Acute Severe major depression Acute Sore throat Acute Subdural hemorrhage following injury Acute
[2017-11-30] MEDS: ACAMPROSATE CALCIUM 333 MG TAB PO SCH (17:59)
[2017-11-30] MEDS: lamoTRIgine 100 MG TAB PO SCH (20:58)
[2017-12-01] MEDS: VENLAFAXINE XR 75 MG CAP PO SCH (08:42)
[2017-12-01] MEDS: MULTIVITAMINS 1 EACH TAB PO SCH (08:42)
[2017-12-01] MEDS: ACAMPROSATE CALCIUM 333 MG TAB PO SCH ×3 (08:42→18:31)
[2017-12-01] MEDS: FOLIC ACID 1 MG TAB PO SCH (08:42)
[2017-12-01] MEDS: GABAPENTIN 400 MG CAP PO SCH ×3 (08:43→21:00)
--- NOTE | 2017-12-01 10:23 | ASMTCMCOM ---
CM Note CM Note Notes: CC checking in with ct. She appears to be doing better. Mood is more stable and she is less anxious. Ct. is discharging tomorrow. She requested to leave the unit around 10:00am so that she can attend an AA meeting at 10:30. A friend is going to be with her throughout Sat. She will be staying with other friends over the long weekend. She has follow up appointments at [facility] on 12/06/17. Date Signed: 12/01/2017 10:22 AM Electronically Signed By:Kayleigh Oh
[2017-12-01] MEDS ORDERED: VENLAFAXINE XR 75 MG CAP PO ONE (10:26)
[2017-12-01] MEDS: DISULFIRAM 250 MG TAB PO SCH (11:33)
--- NOTE | 2017-12-01 13:38 | ASMTCMCOM ---
CM Note CM Note Notes: CC checked in with the patient; she reported having learned something in the stress management workshop that "totally shifted" her outlook. She stated that she planned "to take much of what I've learned home with me." The patient was cheerful and enthused about her experience on the unit. She reported "feeling much better" and plans to return to OP support that she hadn't been accessing prior to admission including, friends who have gotten together to help the patient. The patient was very grateful to [facility]. She is anticipating her discharge for tomorrow (12/02); requesting to leave early in the morning around 10:00 so that she can attend a 10:30 group. Date Signed: 12/01/2017 01:38 PM Electronically Signed By:Cecilia Hernandes
--- NOTE | 2017-12-01 13:59 | SOAPPROG ---
SOAP Progress Note Assessment/Plan: Assessment: Depression with anxious distress, PTSD, and alcohol use disorder, severe. Improvement noted. (see subjective/objective note). Patient to discharge tomorrow (Monday). Plan: (1) Psychotropic medications: After reviewing options, risks, and benefits patient agrees to continue current medications. After reviewing repeat liver function tests with patient, patient requests to restart Antabuse and increase Effexor XR to 150 mg po QD as AST/ALT levels have decreased since yesterday. No other medication changes at this time as more time is needed to determine ongoing tolerability and efficacy. Plan is to continue to observe patient for response and side effects from medications, and ongoing monitoring and evaluation. (2) Review with patient informed consent and recommendations for psychotropic medication treatment listed below (3) Labs: Repeat liver function test for tomorrow AM and review with patient (4) Therapy: continue milieu and group therapy (5) Further investigation including gathering information from patients relatives and review of past case records to inform treatment plan. (6) Safety/Wellness plan and follow-up outpatient appointments to be established prior to discharge. Next steps are for patient to meet with career development consultant to plan a safe discharge plan and establish outpatient services for ongoing treatment. (7) Confer with inpatient treatment team regarding treatment plan. (8) Legal status: voluntary (9) Consider discharge on Monday if patient is in stable condition, safe, and has a safe discharge plan. (10) Substance abuse interventions: recommend and refer patient to substance abuse treatment; reinforce substance abuse education and brief intervention above PSYCHOTROPIC MEDICATION TREATMENT INFORMED CONSENT and RECOMMENDATIONS: Review nature of condition, diagnosis, and prognosis. Review nature and purpose of psychotropic medication treatment. Review type of psychotropic medications being ordered. Review risk and benefits of psychotropic medication treatment. Review probable length of time patient will need to take medications. Review risk and benefits of not undergoing psychotropic medication treatment. Review alternative treatments to psychotropic medications. Review psychotropic medications contraindications, drug-drug interactions, side effects, and importance of reporting any side effects to a psychiatric provider or nurse during inpatient hospitalization, and upon discharge to patients psychiatric outpatient provider, primary care provider, or other health director of home care hospice. Review importance of asking a nurse, psychiatric provider, or primary care provider any questions or problems concerning the psychotropic medications. Verify patient understands the information that has been provided, and understands, accepts, and agrees to psychotropic medications. Review patients safety plan and importance of patient to report to staff while hospitalized if patient is ever a danger to self/others, or unable to care for self, and upon discharge, the importance for patient to contact [facility] or [facility], or go to the nearest emergency room, if patient is ever a danger to self/others, or unable to care for self. Recommend that upon discharge patient establish medication management treatment with a psychiatric provider, establishes routine therapy appointments, and follow-up with primary care provider. Verify patient understands and agrees to these recommendations. 12/01/17 14:00 Subjective: Following up with patient for evaluation of depression, anxiety, and safety. Patient reports, "Feeling much better, feeling back to my normal self." Patient reports taking medications as prescribed, and describes response to medications as okay, and expresses still feeling "a little anxious." Patient does not report undesirable side effects from the medications. Patient agrees to continue current medications, and requests to restart Antabuse and increase in Effexor XR to 150 mg po QD. Patient reports appetite as improved, and reports eating all meals. Patient describes getting 9 hours of sleep. Patient expresses no symptoms of alcohol withdrawal. Patient has exhibited no signs of alcohol withdrawal. Patient requests to discharge tomorrow (Monday). Objective: Vital Signs Temp Pulse Resp BP Pulse Ox 36.5 C 73 14 117/73 98 12/01/17 00:30 12/01/17 00:30 12/01/17 00:30 12/01/17 00:30 12/01/17 00:30 NURSING REPORT: Consulted with nursing for update on patients progress in treatment. Nurses report patient is engaged in treatment, is attending groups, slept 8.5 hours, expresses the following psychiatric symptoms: depression and anxiety, exhibits the following psychiatric symptoms: depressed, flat, anxious; is eating all meals, is taking medications as prescribed with no report of side effects, with no s/s of EPS/akathisia, and denies SI/HI, denies A/V hallucinations, denies delusions. SUBSTANCE ABUSE BRIEF INTERVENTION: Brief intervention regarding the risks of alcohol and cannabis abuse is provided to patient with goal to reduce the risk of harm that could result from the continued use of alcohol and cannabis, with the general aim to investigate the problem, raise awareness of problem, develop a solution with the patient, recommend a specific change or activity, and motivate the patient toward change. Assess substance abuse behavior and give supportive advice about harm reduction, recommend a reduction in hazardous/at- risk consumption patterns, and facilitate referrals for additional specialized treatment with care transition manager. Intermediate goal is for the patient to quit use of alcohol and decrease frequency of cannabis use and attend an AA meeting. Intervention focus on intermediate goals to allow for more immediate success in the treatment process to keep the patient motivated. Review following with patient: Cannabis use risks: Short-term use: impaired short-term memory, impaired motor coordination, altered judgement, in high doses paranoia and psychosis. Long-term use addiction, diminished life satisfaction and achievement, symptoms of chronic bronchitis, and increased risk of chronic psychosis disorders if predisposition to such disorders. In withdrawal anger, aggression irritability, anxiety and nervousness, decreased appetite or weight loss, restlessness, and sleep difficulties with strange dreams. Alcohol/Binge Drinking risks: short-term: injuries, violence, alcohol poisoning, risky sexual behaviors. Long-term: high blood pressure, stroke, liver disease, digestive problems, cancer, learning and memory problems, depression and anxiety, social problems, and alcohol dependence. TREATMENT TEAM MEETING: patient met with this [employer] and treatment team to discuss treatment plan and discharge plan for tomorrow. MSE: The patient presents casually dressed and with good hygiene, and looks stated age. Patient is sitting, posture is upright, and position is relaxed. Patient appears awake, alert, and responds appropriately and reasonably during interview. Patient is engaged, relates well to interviewer, and emotional facial expression is appropriate to situation and changes appropriately with topic. Patient is cooperative, makes comfortable eye contact, and movements are voluntary, deliberate, coordinated, and smooth and even with no inappropriate movements. Patient makes laryngeal sounds effortlessly and shares conversation appropriately; pace of conversation is appropriate, and stream of talking is fluent; articulation is clear and understandable; word choice is effortless and appropriate for education level; completes sentences, occasionally pausing to think; rate and volume are appropriate for interview and setting. Patient reports mood as anxious. Patients affect is stable with full variable range, congruent with mood, and appropriate to speech and circumstances. Patient has linear and logical thinking, with no loose associations, tangential thought, thought blocking, concrete thinking, or any other signs of formal thought disorder. Patient denies suicidal and homicidal ideation, and denies hallucinations and delusions. Patient appears to be a reliable historian with sound judgement and good insight into current condition. Patient has no apparent dysfunction in recent or remote memory noted , and no evidence of gross cognitive dysfunction noted at any point during the interview. - Time Spent With Patient Time Spent With Patient: 30 minutes, met with patient individually and with patient meeting with treatment team. - Pending Discharge Pending Discharge Within 24 Hours: Yes Pending Discharge Within 48 Hours: No Pending Discharge Date: 12/02/17 Pending Discharge Time: 11:00 ICD10 Worksheet Patient Problems: Problems Problem Status Onset Alcohol use disorder, severe, in controlled environment Acute Alcoholism Acute Major depressive disorder, recurrent episode, severe with anxious distress Acute Post traumatic stress disorder Acute Suicidal ideation Acute Alcohol abuse Acute Alcohol intoxication Acute Fall down stairs Acute Fracture of orbital floor Acute Intraparenchymal hematoma of brain due to trauma Acute Nasal bone fracture Acute Severe major depression Acute Sore throat Acute Subdural hemorrhage following injury Acute
[2017-12-01] MEDS: lamoTRIgine 100 MG TAB PO SCH (20:59)
[2017-12-02 06:54] VITALS: BP 155/100
[2017-12-02] MEDS: MULTIVITAMINS 1 EACH TAB PO SCH (07:57)
[2017-12-02] MEDS: GABAPENTIN 400 MG CAP PO SCH (07:57)
[2017-12-02] MEDS: ACAMPROSATE CALCIUM 333 MG TAB PO SCH (07:57)
[2017-12-02] MEDS: FOLIC ACID 1 MG TAB PO SCH (07:57)
[2017-12-02] MEDS: DISULFIRAM 250 MG TAB PO SCH (07:57)
[2017-12-02] MEDS ORDERED: VENLAFAXINE XR 75 MG CAP PO SCH (09:00)
--- NOTE | 2017-12-02 09:12 | ASMTBHDC ---
Notes Note: Notes: Pt. was eating breakfast when CC approached. Pt. requested to be discharged by 10am, as she wants to attend an AA meeting at 10:30am. Pt. stated a friend will be picking her up today, taking her to the meeting, and staying with pt for a few hours today. Pt. stated then pt. will stay at another friend's house tonight. Pt. reports talking with her sponsor everyday. Pt. shared about how she has processed her relapse and wants to continue working on her sobriety. Pt. denied SI, HI, AVH and paranoia. Pt. stated she is very excited to see her new providers on 12/06/17 and looks forward to working with them. Pt. requested a pair of shoes prior to discharge. Date Signed: 12/02/2017 09:11 AM Electronically Signed By:Arline Catherine
--- NOTE | 2017-12-02 10:20 | BDS ---
REASON FOR ADMISSION: From the ED note dated 11/27/2017, patient presented to the emergency department with complaints of feeling anxious, depressed and suicidal. The patient reported she is currently unemployed and has been increasingly anxious over the last few days. The patient reported over the last 24 hours she has felt depressed and suicidal. The patient reported she does not have a plan, but feels as though she would hurt herself. Patient presented tearful. Patient described spasms and tingling of the mouth. The patient denied chest pain. Denied shortness of breath. Denied trauma or injury. The patient denied any ingestion of any illicit substances or any of her prescribed medications, other than prescription doses. Patient admitted to drinking 1 pint of vodka per day, and last intake was last night. The patient was admitted involuntarily on an M1 hold due to being a danger to herself. The patient was admitted for safety, crisis stabilization and medication evaluation. ADMITTING DIAGNOSES: Major depressive disorder, recurrent episode, severe, with anxious distress; posttraumatic stress disorder; alcohol use disorder, severe, in a controlled environment. ADMISSION PHYSICAL EXAM: The patient was seen on 11/28/2017, by Dr. Sarah for an internal medicine consultation for medical clearance for inpatient behavioral health stay. Dr. Sarah reported he saw no medical contraindications to the patient's continued stay in the inpatient behavioral health unit or to any psychiatric medications or procedures. For further details, please refer to Dr. Sarah's behavioral health consultation note dated 11/28/2017. ADMISSION LABS: From the emergency department, CBC revealed an elevated white blood cell count at 9.73. There were predominantly neutrophils, and there was no left shift. Otherwise, there are minor abnormalities of no clinical significance. Serum chemistry initially showed an anion gap of 25. Subsequently, she was hydrated in the emergency department and anion gap was resolved. She had a low carbon dioxide at 19. After hydration, calcium was 9.3 initially and 7.7 after hydration. Liver function tests revealed elevated AST and ALT of 166 and 107. Her albumin was low when checked after hydration at 3.3. TSH was normal at 1.79. Hemoglobin A1c was normal at 4.7. Toxicology screen in the serum was positive for ethyl alcohol at 156 mg/dL and in the urine was non-negative for amphetamines and marijuana and was negative for all other substances of abuse. Liver function was repeated on 11/30/2017. AST was elevated at 333. ALT was elevated at 204. Total protein was elevated at 5.3, and albumin was elevated at 3.4. Liver function was repeated again on 2017. AST was lower, however, still elevated at 152. ALT was lower, however, still elevated at 170. Total protein was low at 5.3. Albumin was low at 3.4. Repeat liver function was completed this morning, 12/02/2017, at 6:40, and results currently pending. Fasting lipid panel from 11/29/2017 within normal limits, except LDL cholesterol calculated was low at 68. Non-HDL cholesterol was low at 78. HDL cholesterol was elevated at 107. LDL/HDL ratio was low at 0.64. The non-negative lab for amphetamine screen likely due to patient's recent prescription of Adderall. Liver function test from 12/02/2017, at 6:40 a.m. results have been posted and are as follows: AST has gone down, however, still elevated at 82. ALT has also gone down, however, still elevated at 145. Total protein has gone up, however, is still low at 6.0. All other within normal limits. MAJOR PROCEDURES OR TESTS: None. HOSPITAL COURSE: The most prominent symptoms and behaviors while the patient was here were moderate anxiety and depression. Treatment modalities utilized were milieu and group therapy. Trazodone 150 mg p.o. q.h.s. was continued to target insomnia symptoms related to depression and anxiety, was tolerated with no report of side effects and with good response. The patient reported that she felt like her Prozac 80 mg p.o. daily was no longer working and requested this to be stopped and replaced with another antidepressant. Effexor XR 75 mg p.o. q.h.s. was started and titrated to 150 mg p.o. q.h.s., was tolerated with no report of side effects and with good response. Gabapentin 400 mg p.o. t.i.d. was started for anxiety, was titrated to 800 mg p.o. t.i.d. for anxiety, was tolerated with no report of side effects and with good response. Antabuse 250 mg p.o. daily was started at the request of the patient, was tolerated with no report of side effects. Antabuse was held due to the patient's elevated liver enzymes. Antabuse was restarted after repeat liver function tests and liver enzymes had reduced, and medication continued to be tolerated. Acamprosate 666 mg p.o. t.i.d. was started at the request of the patient for alcohol use disorder, was tolerated with no report of side effects and with good response. The patient has improved considerably with no signs of psychiatric symptoms and no psychiatric symptoms expressed at discharge. Over the course of the last 3 days, the patient has expressed no alcohol withdrawal symptoms and has exhibited no signs of alcohol withdrawal. The patient reports she has improved since admission. States to be in stable condition. Feels safe to discharge, and she contracts for safety. Patient's response to treatment was good. There were no adverse or unexpected results of treatment. The patient was safe throughout her stay, active in treatment, attended and engaged in groups, and was appropriate with staff and other patients. The treatment team consensus is the patient is in stable condition and is safe to discharge today. CONDITION ON DISCHARGE: Patient is in stable condition and is no longer a danger to self or others, and is not gravely disabled due to mental illness. Patient is no longer in need of inpatient level of care, and can be safely and effectively treated within the community. The patients level of risk at time of discharge is low based on the risk assessment below following this discharge summary. MSE: The patient is casually dressed and with good hygiene, and looks stated age. Patient is sitting, posture is upright, and position is relaxed. Patient appears awake, alert, and responds appropriately and reasonably during interview. Patient is engaged, relates well to interviewer, and emotional facial expression is appropriate to situation and changes appropriately with topic. Patient is cooperative, makes comfortable eye contact, and movements are voluntary, deliberate, coordinated, and smooth and even with no inappropriate movements. Patient makes laryngeal sounds effortlessly and shares conversation appropriately; pace of conversation is appropriate, and stream of talking is fluent; articulation is clear and understandable; word choice is effortless and appropriate for education level; completes sentences, occasionally pausing to think; rate and volume are appropriate for interview and setting. Patient reports mood as euthymic. Patients affect is stable with full variable range, congruent with mood, and appropriate to speech and circumstances. Patient has linear and logical thinking, with no loose associations, tangential thought, thought blocking, concrete thinking, or any other signs of formal thought disorder. Patient denies suicidal and homicidal ideation, and denies hallucinations and delusions. Patient appears to be a reliable historian with sound judgement and good insight into current condition. Patient has no apparent dysfunction in recent or remote memory noted , and no evidence of gross cognitive dysfunction noted at any point during the interview. DISCHARGE DIAGNOSES: Major depressive disorder, recurrent episode, severe, with anxious distress; posttraumatic stress disorder; alcohol use disorder, severe. CURRENT MEDICATIONS: Acamprosate 666 mg p.o. t.i.d. with meals, Antabuse 250 mg p.o. daily, gabapentin 800 mg p.o. t.i.d., trazodone 150 mg p.o. q.h.s., Effexor XR 150 mg p.o. daily. At time of discharge, the patient requested prescriptions for these medications, and a 30-day prescription was written for each of these medications. The prescriptions were reviewed with the patient to ensure accuracy and patient understanding. DISPOSITION: The patient left hospital independently and voluntarily and plans to return to her home in [place], and attend an AA meeting today. FOLLOWUP: record center coordinator reports the appropriate outpatient follow-up services have been established and outpatient appointments have been scheduled. The patient received written instructions with times and dates of outpatient follow-up appointments. The following follow-up recommendations were provided to the patient at discharge: Continue psychotropic medications as prescribed and attend appointments as scheduled. Report any side effects to a psychiatric outpatient provider, a primary care provider, or other health care giver. Address any questions or problems concerning the psychotropic medications with a psychiatric outpatient provider, a primary care provider, or other health care giver. Contact [facility] or [facility], or go to the nearest emergency room, if you are ever a danger to yourself/others, or unable to care for yourself. As soon as possible, establish a routine medication management treatment with a psychiatric provider, establish routine therapy appointments, and follow-up with a primary care provider. SUBSTANCE ABUSE BRIEF INTERVENTION: Brief intervention regarding the risks of alcohol and cannabis abuse is provided to patient with goal to reduce the risk of harm that could result from the continued use of alcohol and cannabis, with the general aim to investigate the problem, raise awareness of problem, develop a solution with the patient, recommend a specific change or activity, and motivate the patient toward change. Assess substance abuse behavior and give supportive advice about harm reduction, recommend a reduction in hazardous/at- risk consumption patterns, and facilitate referrals for additional specialized treatment with direct care specialist. Intermediate goal is for the patient to quit use of alcohol and decrease frequency of cannabis use and attend an AA meeting. Intervention focus on intermediate goals to allow for more immediate success in the treatment process to keep the patient motivated. Review following with patient: Cannabis use risks: Short-term use: impaired short-term memory, impaired motor coordination, altered judgement, in high doses paranoia and psychosis. Long-term use addiction, diminished life satisfaction and achievement, symptoms of chronic bronchitis, and increased risk of chronic psychosis disorders if predisposition to such disorders. In withdrawal anger, aggression irritability, anxiety and nervousness, decreased appetite or weight loss, restlessness, and sleep difficulties with strange dreams. Alcohol/Binge Drinking risks: short-term: injuries, violence, alcohol poisoning, risky sexual behaviors. Long-term: high blood pressure, stroke, liver disease, digestive problems, cancer, learning and memory problems, depression and anxiety, social problems, and alcohol dependence. LEGAL COURSE: The patient was admitted on an M1 hold. Patient requested to continue to stay in the hospital voluntarily after M1 hold . Patient discharged today independently and voluntarily. ATTITUDE AT TIME OF DISCHARGE: Patient reports, Being here is what I needed, I am in a good place now and ready to discharge. The patients attitude was positive at time of discharge, and patient reports looking forward to discharging today. The patient reports she feels safe to discharge, is no longer a danger to herself or others, is in stable condition, and contracts for safety. Patient states she will continue medications as prescribed, and establish medication management treatment with an outpatient provider after discharge. Patient reports she understands the information that has been provided to her, and she understands, accepts, and agrees to psychotropic medications. Patient describes internal protective factors as the coping skills she has learned while hospitalized here, and she plans to continue to practice these coping skills after discharge. Patient reports external protective factors as edgardo of meeting new people. Patient describes looking forward to attending an AA meeting after discharge. Patient describes future plans as meeting new people and continued sobriety. Patient reports she has completed Safety/Wellness Plan and has reviewed Safety/Wellness Plan with her nurse. LABS AND STUDIES: There were no pending labs or studies at time of discharge. Patient provided recommendation to follow-up with PCP for repeat liver function tests in 1 week. ADVANCE DIRECTIVES: There were no advance directives on file, and the patient was full code during this hospitalization. The following psychotropic medication treatment informed consent and recommendations were provided to the patient at time of discharge. Patient reports she understands, accepts, and agrees to the information that has been provided. PSYCHOTROPIC MEDICATION TREATMENT INFORMED CONSENT and RECOMMENDATIONS: Review nature of condition, diagnosis, and prognosis. Review nature and purpose of psychotropic medication treatment. Review type of psychotropic medications being prescribed. Review risk and benefits of psychotropic medication treatment. Review probable length of time will need to take medications. Review risk and benefits of not undergoing psychotropic medication treatment. Review alternative treatments to psychotropic medications. Review psychotropic medications contraindications, side effects, and importance of reporting any side effects to a psychiatric provider, primary care provider, or other health care giver. Review importance of her asking a psychiatric provider or primary care provider any questions or problems concerning the psychotropic medications. Review importance of reporting to a psychiatric provider, primary care provider, or other health care giver if she plans to or becomes . Review safety plan and the importance to contact [facility] or [facility] , or go to the nearest emergency room, if ever a danger to yourself/others, or unable to care for yourself. Recommend upon discharge to establish routine medication management treatment with a psychiatric provider, establish routine therapy appointments, and follow-up with a primary care provider. Verify patient understands, accepts, and agrees to the information that has been provided. SUICIDE ASSESSMENT FIVE-STEP EVALUATION AND TRIAGE (1) RISK FACTORS: (a) Suicidal behavior: attempt 10 years ago by walking in front of traffic; attempt 5 years ago by overdose; no attempt prior to current hospitalization. (b) Current/past psychiatric disorders: depression, anxiety, PTSD, alcohol use disorder (c) Richter symptoms: no psychiatric symptoms expressed or exhibited at time of discharge (d) Family history: none (e) Precipitants/Stressors/Interpersonal: none (f) Change in treatment: discharge from psychiatric hospital (g) Access to firearms: none (2) PROTECTIVE FACTORS: (a) Internal: coping skills learned while hospitalized (b) External: meeting new people; continued sobriety (3) SUICIDAL INQUIRY: (a) Ideation: none (b) Plan: none (c) Behaviors: none; patient was safe throughout stay with no suicidal or parasuicidal behaviors (d) Intent: none (4) RISK LEVEL: Low: modifiable risk factors, strong protective factors; no suicidal or self-injurious ideation. Intervention: treatment plan to reduce symptoms including medications and therapy, provided emergency/crisis numbers, established follow-up plan, and patient has strong support system within . /[id number]/MODL MTDD
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
== END 2017-12-02 10:15 | disposition home or self-care (01) | DRG 885 ==
LOC: EDUNIT# → BBEH 23:05
PROVIDERS: ADMIT Psychiatry & Neurology Psychiatry; ATTEND Psychiatry & Neurology Psychiatry
DX: F33.2 Major depressive disorder, recurrent severe without psychotic features (principal); F41.9 Anxiety disorder, unspecified; F10.20 Alcohol dependence, uncomplicated; F43.10 Post-traumatic stress disorder, unspecified
CPT/HCPCS: 80305; 96374; G0480; J2060

== ENCOUNTER 2018-02-11 00:40 | Emergency (ER) | payer MEDICAID ==
[2018-02-11 01:15] LABS: PLATELET COUNT 233 10^3/uL (150-400)
[2018-02-11] MEDS ORDERED: LORazepam 1 MG TAB PO ONE (01:18)
[2018-02-11] MEDS ORDERED: IBUPROFEN 600 MG TAB PO ONE ×2 (01:21→01:33)
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
[2018-02-11] MEDS ORDERED: ONDANSETRON DISINTEGRATING 4 MG TAB PO ONE (08:03)
[2018-02-11 10:20] VITALS: BP 112/78
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
--- NOTE | 2018-02-11 10:42 | ASMTTCLDSP ---
TLC Discharge Disposition Disposition: Answers: Discharge If Answers: Yes DISCHARGED: Patient/family given suicide hotline info & SAMHSA brochure? Disposition Notes: Notes: Pt had been seeing a thera[ist at [facility] for a year and a half. This therapist and her psychiatrist recently left. She was given a new therapist and psychiatrist and does not feel she can be helped by the therapist who is an internal medicine doctor. She is also concerned that seeing someone once a week is not meeting her mental health needs and requested help in finding someone who could better meet her needs. Clinician gave her names of multiple private therapists in [place] who accept Medicaid along with an agency who accepts Medicaid. Pt is anxious over her ability to continue to afford housing for more than the next several months. Clinician gave her information on [facility] for seniors and for [facility] senior housing. Pt agreed to continue to see her therapist at [facility] until she begins a relationship with a new therapist. She will continue to see her psychiatrist at [facility] and take her medications. Discharge Concerns/Recommendations: Notes: In consultation with [facility] ED physician, Dr Carolyn MD and on-call psychiatrist,Dr Anupam MD , both concurred that Pt does not appear to meet 27-65 criteria requiring psychiatric hospitalization as Pt does not appear to be an imminent risk of harm to self/others/due to grave disability due to a mental illness condition. Was patient given the Answers: Not applicable Inpatient Behavioral Health Prohibited Belongings List while in the ED? Date Signed: 02/11/2018 10:41 AM Electronically Signed By:Gissel Morales
== END 2018-02-11 10:30 | disposition home or self-care (01) ==
LOC: EDUNIT#
DX: F10.129 Alcohol abuse with intoxication, unspecified (principal); F43.10 Post-traumatic stress disorder, unspecified; F32.9 Major depressive disorder, single episode, unspecified; Y90.6 Blood alcohol level of 120-199 mg/100 ml; Z62.810 Personal history of physical and sexual abuse in childhood; Z91.410 Personal history of adult physical and sexual abuse
CPT/HCPCS: 80305; G0480

== ENCOUNTER 2018-06-08 13:44 | Emergency (ER) | payer MEDICAID ==
--- NOTE | 2018-06-08 13:47 | EDPHY ---
H & P Source: Patient, Family, EMS - Medical/Surgical History Hx Asthma: No Hx Chronic Respiratory Disease: No Hx Diabetes: No Hx Cardiac Disease: No Hx Renal Disease: No Hx Cirrhosis: No Hx Alcoholism: Yes Hx HIV/AIDS: No Hx Splenectomy or Spleen Trauma: No Other PMH: PMH:ETOH,SZ,DEPRESSION - Social History Smoking Status: Never smoked Time Seen by Provider: 06/08/18 13:46 HPI/ROS: HPI: This is a 57-year-old female who presents with Chief Complaint: SI, DEPRESSION, [facility] Location: psych Quality: Depression, suicidal thoughts Duration: Unknown Signs and Symptoms: no auditory hallucinations, no visual hallucinations, + suicidal ideation with a plan, no homicidal ideation, no paranoia Timing: None Severity: Moderate Context: Patient was transferred from [facility] and ambulance to this ER as she told them that she was feeling hopeless and wanted to go to sleep and wake up. She had a relapse of her sobriety last night and drank alcohol 4 "shooters" at midnight. She is enrolled in an intensive outpatient group therapy and went there this morning and was upset about her relapse. Patient admits to being severely depressed. Spoke with counselor, Carlos, who is concerned with undiagnosed with personality disorder and patient in crisis mode and dissociating. Patient told counselor she expressed suicidal thoughts. Counselor recommends inpatient. Modifying Factors: None Comment: ROS: A comprehensive 10 system review of systems is otherwise negative aside from elements mentioned in the history of present illness. MEDICAL/SURGICAL/SOCIAL HISTORY: Medical history: ETOH, SZ, DEPRESSION Surgical history: Denies Social history: Never smoked. Marijuana use. Family history noncontributory. CONSTITUTIONAL: Tearful, tidy, cooperative, adult white female wearing dark sunglasses indoors, awake and alert, no obvious distress HEENT: Atraumatic and normocephalic, PERRL, EOMI. Nares patent; no rhinorrhea; no nasal mucosal edema. Tympanic membranes clear. Oropharynx clear, no exudate and moist pink mucosa. Airway patent. No lymphadenopathy. No meningismus. Cardiovascular: Normal S1/S2, regular rate, regular rhythm, without murmur rub or gallop. PULMONARY/CHEST: Symmetrical and nontender. Clear to auscultation bilaterally. Good air movement. No accessory muscle usage. ABDOMEN: Soft, nondistended, nontender, no rebound, no guarding, no peritoneal signs, no masses or organomegaly. No CVAT. EXTREMITIES: 2/2 pulses, strength 5/5, no deformities, no clubbing, no cyanosis or edema. NEUROLOGICAL: no focal neuro deficits. GCS 15. SKIN: Warm and dry, no erythema. no rash. Good capillary refill. PSYCH: Fair eye contact, no flight of ideas, organized thought process, fair insight and judgment, no auditory hallucinations, no visual hallucinations, + suicidal ideation with a plan, no homicidal ideation, no paranoia ([place]) Constitutional: Initial Vital Signs Temperature (C) 36.7 C 06/08/18 13:44 Heart Rate 73 06/08/18 13:44 Respiratory Rate 16 06/08/18 13:44 Blood Pressure 119/88 H 06/08/18 13:44 O2 Sat (%) 93 06/08/18 13:44 O2 Delivery Mode Room Air Allergies/Adverse Reactions: No Known Allergies Allergy (Verified 02/11/18 00:54) Home Medications: Medication Instructions Recorded Gabapentin [Gabapentin 800 mg] 800 mg PO TID 30 Days #90 tablet 12/01/17 Venlafaxine Xr [Effexor Xr] 150 mg PO DAILY 30 Days #30 cap 12/01/17 traZODone [traZODone 150MG (*)] 150 mg PO HS 30 Days #30 tab 12/01/17 Medical Decision Making ED Course/Re-evaluation: Vital signs reviewed and stable upon arrival. Nurse will contact the facility so I can talk to the provider and get an update on why patient was transferred to our ER. Labs and UDS ordered. 1438: Attempted to call therapist, Carlos Haro at [phone]. Unable to speak with provider and left message. 1529: Patient has suicidal thoughts but no plan. Has alcohol and marijuana on board. 1530: Labs are grossly unremarkable. ETOH= 46. Urine drug screen positive for marijuana. Medically clear for mental health evaluation. 1700: Spoke with mental health facilities administrator, Miranda, who is evaluating the patient. 1700: End of Shift. Signed over to Dr. Leon pending mental health evaluation and final disposition. This patient was seen under the supervision of my secondary supervising physician. I evaluated care for this patient with attending. Discussed this patient with Dr. Leon. (Gwen Mcdermott) This patient was seen by mental health and felt appropriate for outpatient treatment of depression. She denies suicidal ideation. I agree with this assessment. (Tasia Leon) Differential Diagnosis: Differential diagnosis includes but is not limited to major depression, anxiety disorder, schizophrenia, bipolar disorder, intoxicant use, suicidal ideation, psychosis, mitesh. (Gwen Mcdermott) - Data Points Laboratory Results: Laboratory Results 06/08/18 14:08 06/08/18 14:08 Medications Given: Discontinued Medications Ibuprofen (Motrin) 400 mg PO EDNOW ONE Stop: 06/08/18 17:45 Last Admin: 06/08/18 17:57 Dose: 400 mg Ondansetron HCl (Zofran Odt) 4 mg PO EDNOW ONE Stop: 06/08/18 14:43 Last Admin: 06/08/18 14:45 Dose: 4 mg Departure - Departure Disposition: Home, Routine, Self-Care Clinical Impression: Verbalizes suicidal thoughts, Alcoholism /alcohol abuse, Marijuana user Depression Qualifiers: Depression Type: major depressive disorder Major depression recurrence: recurrent Active/Remission status: currently active Major depression episode severity: moderate Qualified Code(s): F33.1 - Major depressive disorder, recurrent, moderate Condition: Good Instructions: Suicide Prevention (ED) Additional Instructions: Followup as suggested. Referrals: SAMANTHA GARIBAY [Other] - As per Instructions
[2018-06-08 14:19] LABS: PLATELET COUNT 223 10^3/uL (150-400)
[2018-06-08] MEDS ORDERED: ONDANSETRON DISINTEGRATING 4 MG TAB PO ONE (14:42)
[2018-06-08] MEDS ORDERED: IBUPROFEN 200 MG TAB PO ONE (17:44)
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
--- NOTE | 2018-06-08 20:31 | ASMTTCLDSP ---
TLC Discharge Disposition Disposition: Answers: Discharge If Answers: Yes DISCHARGED: Patient/family given suicide hotline info & SAMHSA brochure? Disposition Notes: Notes: In consultation with ED MD, Dr Tasia Leon and director of clinical education psychiatrist, Dr Aniceto Bo, both concurred that pt did not appear to meet the 27-65 criteria for in-pt psychiatric hospitalization as pt does not appear to be a danger to herself or others and does not appear to be gravely disabled. Pt's M-1 Hold to be lifted by Dr Tasia Leon and appproved by Dr. Aniceto Bo. Discharge Concerns/Recommendations: Notes: Pt commits to safety and to remain sober - she has no alcohol at her home and is committed to her sobriety. She will attend AA tomorrow morning - reach out to brooke peers and continue with her treatment - therapy and psychopharm at [facility] and her IOP at [facility] in [place]. Pt commit to returning to the ED if her urges to drink or she experiences increased S/I. Psychiatrist vacating M1 Tasia Leon MD Hold: Date and time M1 hold 06/08/2018 08:30 PM vacated (time format is hh:mm): Type of Hold: Answers: M1/72-hour Hold Hold initiated by: Answers: Psychiatrist Date Signed: 06/08/2018 08:30 PM Electronically Signed By:Cass Zambrano
[2018-06-08 21:20] VITALS: BP 138/83
== END 2018-06-08 21:19 | disposition home or self-care (01) ==
LOC: EDUNIT#
DX: R45.851 Suicidal ideations (principal); F33.1 Major depressive disorder, recurrent, moderate; F10.10 Alcohol abuse, uncomplicated; F12.90 Cannabis use, unspecified, uncomplicated
CPT/HCPCS: 80305; G0480

== ENCOUNTER 2018-06-14 13:51 | Emergency (ER) | payer OTHER, MEDICAID ==
--- NOTE | 2018-06-14 13:59 | EDPHY ---
H & P Time Seen by Provider: 06/14/18 13:59 HPI/ROS: CHIEF COMPLAINT: Carpal pedal spasms, vomiting, anxiety, relapse drinking HISTORY OF PRESENT ILLNESS: The patient is currently and a outpatient treatment program for alcohol dependence. 2 days ago she relapsed and started drinking again. She presents to the ED today after she had an episode of anxiety which precipitated vomiting and carpal pedal spasms. The patient denies any suicidal or homicidal ideations. She feels dehydrated and weak from her symptoms. She does admit that it was secondary to some anxiety over some of the counseling exercises that she has been performing as an outpatient. She denies any fever, cough or congestion. She denies significant abdominal pain or other complaints. REVIEW OF SYSTEMS: A comprehensive 10 point review of systems is otherwise negative aside from elements mentioned in the history of present illness. Source: Patient Exam Limitations: No limitations - Medical/Surgical History Hx Asthma: No Hx Chronic Respiratory Disease: No Hx Diabetes: No Hx Cardiac Disease: No Hx Renal Disease: No Hx Cirrhosis: No Hx Alcoholism: Yes Hx HIV/AIDS: No Hx Splenectomy or Spleen Trauma: No Other PMH: PMH:ETOH,SZ,DEPRESSION - Social History Smoking Status: Never smoked - Physical Exam Exam: General Appearance: Alert, no distress Eyes: Pupils equal and round no pallor or injection ENT, Mouth: Mucous membranes moist Respiratory: There are no retractions, lungs are clear to auscultation Cardiovascular: Regular rate and rhythm Gastrointestinal: Abdomen is soft and nontender, no masses, bowel sounds normal Neurological: A&O, normal motor function, normal sensory exam, normal cranial nerves Skin: Warm and dry, no rashes Musculoskeletal: Neck is supple nontender Extremities: Carpal pedal spasms noted in the bilateral hands Constitutional: Initial Vital Signs Temperature (C) 36.7 C 06/14/18 13:51 Heart Rate 70 06/14/18 13:51 Respiratory Rate 18 06/14/18 13:51 Blood Pressure 132/89 H 06/14/18 13:51 O2 Sat (%) 95 06/14/18 13:51 O2 Delivery Mode Room Air Allergies/Adverse Reactions: No Known Allergies Allergy (Verified 06/14/18 14:04) Home Medications: Medication Instructions Recorded Gabapentin [Gabapentin 800 mg] 800 mg PO TID 30 Days #90 tablet 12/01/17 Venlafaxine Xr [Effexor Xr] 150 mg PO DAILY 30 Days #30 cap 12/01/17 traZODone [traZODone 150MG (*)] 150 mg PO HS 30 Days #30 tab 12/01/17 busPIRone 06/14/18 Medical Decision Making ED Course/Re-evaluation: The patient is well-appearing without evidence of alcohol withdrawal. She had an IV established. She received IV Zofran, L of normal saline, Zofran and Ativan. The patient's serum chemistries are within normal limits. Re-evaluated the patient at 3:00 p.m. and she is currently feeling better. She would like to be discharged from the department. She will continue to follow up with her outpatient alcohol treatment program. Differential Diagnosis: Differential diagnosis considered includes anxiety, dehydration, carpal pedal spasms, alcohol withdrawal - Data Points Laboratory Results: Laboratory Results 06/14/18 14:33 06/14/18 14:33 Sodium 137 mEq/L mEq/L (135-145) Potassium 3.8 mEq/L mEq/L (3.5-5.2) Chloride 97 mEq/L mEq/L (97-110) Carbon Dioxide 23 mEq/l mEq/l (22-31) Anion Gap 17 mEq/L H mEq/L (6-14) BUN 23 mg/dL mg/dL (7-23) Creatinine 0.8 mg/dL mg/dL (0.6-1.0) Estimated GFR > 60 Glucose 107 mg/dL H mg/dL (70-100) Calcium 9.5 mg/dL mg/dL (8.5-10.4) Medications Given: Discontinued Medications Sodium Chloride (Ns) 1,000 mls @ 0 mls/hr IV EDNOW ONE; Wide Open PRN Reason: Protocol Stop: 06/14/18 14:11 Last Admin: 06/14/18 14:18 Dose: 1,000 mls Lorazepam (Ativan Injection) 1 mg IVP EDNOW ONE Stop: 06/14/18 14:11 Last Admin: 06/14/18 14:18 Dose: 1 mg Ondansetron HCl (Zofran) 4 mg IVP EDNOW ONE Stop: 06/14/18 14:11 Last Admin: 06/14/18 14:18 Dose: 4 mg Departure - Departure Disposition: Home, Routine, Self-Care Clinical Impression: Anxiety Condition: Good Instructions: Anxiety (ED) Additional Instructions: 1. Please return to the ED for worsening symptoms. 2. Please follow-up with your outpatient alcohol program as scheduled.
[2018-06-14] MEDS ORDERED: LORazepam 2 MG/ML INJ IVP ONE (14:10)
[2018-06-14] MEDS ORDERED: NS 1,000 ML IV ONE (14:10)
[2018-06-14] MEDS ORDERED: ONDANSETRON 4 MG/2 ML VIAL IVP ONE (14:10)
[2018-06-14 15:21] VITALS: BP 127/89
== END 2018-06-14 15:17 | disposition home or self-care (01) ==
LOC: EDUNIT#
DX: F41.9 Anxiety disorder, unspecified (principal); R25.2 Cramp and spasm; R11.10 Vomiting, unspecified; E86.9 Volume depletion, unspecified
CPT/HCPCS: 96374; J2060; J2405